=== PATIENT | female | born 1950 | race Caucasian/White ===

== ENCOUNTER 2020-02-23 21:58 | Emergency (ER) | payer MEDICARE, SELFPAY ==
[2020-02-23 22:10] VITALS: BP 175/125; PULSE 84; RESP 16; TEMP 36.6; O2SAT 99; BMI 36.9
--- NOTE | 2020-02-23 22:48 | ED_ITS ---
HPI - General Adult General: Chief complaint: General Medical Stated complaint: high bp Time Seen by Provider: 02/23/20 22:20 History of Present Illness: HPI narrative: 69-year-old female with a history of a arrhythmia . She has had palpitations today, and her blood pressure was high. She felt some tingling in her left arm at one point. Symptoms are improved currently. She denies any shortness of breath chest discomfort, headache, blurry vision, swelling of the feet Onset (ago): hour(s) Radiation: non-radiation Severity: moderate Quality: other Pain Consistency: now resolved Exacerbating factors: none Associated symptoms: Reports no associated symptoms and palpitations; Deny chest pain, dyspnea, headache(s), nausea, rash or vomiting Review of Systems Const: Denies: fever or chills Eyes: Denies: change in vision or blurry vision ENMT: Denies: painful swallowing or facial/sinus pain Card: Reports: palpitations and irregular heart rhythm; Denies: chest pain or edema Resp: Denies: shortness of breath, productive cough, non-productive cough or wheezing GI: Denies: abdominal pain, nausea or vomiting : Denies: painful urination or blood in urine Musc: Denies: neck pain or back pain Skin/Breast: Denies: rash, itching or redness Neuro: Denies: headache, dizziness or vertigo Psych: Reports: anxiety PFSH ED PFSH: Social History Smoking and tobacco status: never smoked Physical Exam Const: GENERAL APPEARANCE: well developed ORIENTATION/CONSCIOUSNESS: Yes oriented to person, Yes oriented to place and Yes oriented to time HENMT: COMMON NORMALS: normocephalic, external ears normal and external nose normal HEAD & SCALP: normocephalic FACE & SINUS: normal facial exam NOSE: external nose normal and no nasal discharge EXTERNAL EAR: Yes external ears normal Eye: COMMON NORMALS: PERRL, EOMs intact bilaterally and conjunctivae normal EYELID: eyelids normal CONJUNCTIVA: Yes conjunctivae normal PUPIL: Yes PERRL Neck/C-Spine: GENERAL: No tracheal deviation Chest: COMMONS NORMALS: inspection of chest normal CHEST: No tenderness Resp: COMMON NORMALS: clear to auscultation bilaterally EFFORT & INSPECTION: No tachypneic, No respiratory distress, No retractions, No uses accessory muscles and No tracheal deviation AUSCULTATION: clear to auscultation bilaterally, no rhonchi, no wheezes and lung sounds not diminished Cardio: COMMON NORMALS: regular rate and regular rhythm RATE: regular rate RHYTHM: regular rhythm HEART SOUNDS: no murmurs PERIPHERAL PULSES: radial pulses present GI: INSPECTION: No abdominal distension AUSCULTATION: No hyperactive bowel sounds and No hypoactive bowel sounds PALPATION: No guarding and No rigid PERCUSSION: no dullness to percussion and no tympanic to percussion Neuro: SENSORIUM/ORIENTATION: Yes oriented to person, Yes oriented to place and Yes oriented to time Psych: COMMON NORMALS: mental status grossly normal Skin: COMMON NORMALS: no rashes or lesions noted GENERAL SKIN EXAM: no rashes or lesions noted Course Vital Signs: Vital signs: Vital Signs Temperature 98 F 02/23/20 22:10 Pulse Rate 93 02/24/20 00:51 Respiratory Rate 18 02/24/20 00:51 Blood Pressure 179/103 02/24/20 00:51 Pulse Oximetry 96 02/24/20 00:51 MDM - General Adult MDM Narrative: Medical decision making narrative: 69-year-old female presents after feeling palpitations, with hypertension. She has had 5 mg of metoprolol IV here. Her heart rate has slowed. She is pretty much asymptomatic now. Blood pressure is still hypertensive at 160/90 her first troponin is essentially negative. Her EKG shows a sinus rhythm with a normal axis and frequent supraventricular premature complexes, which is a chronic condition for her. She takes metoprolol daily, but only 12.5 mg. We will have her increase to 25 mg. I am going to give her a prescription for amlodipine to take if her blood pressure is high and tell her to take her blood pressure twice daily. She knows to follow-up as an outpatient. Lab Data: Labs: Lab Results 02/23/20 02/23/20 02/23/20 Range/Units 22:45 22:45 22:45 WBC 9.3 (4.0-10.0) 10^3/ uL RBC 4.99 (4.1-5.3) 10^6/u L Hgb 14.1 (11.5-15.3) g/dL Hct 43.2 (37.0-47.0) % MCV 86.6 (81-99) fL MCH 28.3 (28.0-34.0) pg MCHC 32.6 (30.0-36.0) g/dL RDW 13.2 (12.1-15.1) % Plt Count 372 (130-400) 10^3/c mm MPV 8.6 (7.4-10.4) fL Neut % (Auto) 56.4 % Lymph % (Auto) 33.6 % [place] % (Auto) 7.4 % Eos % (Auto) 1.8 % Baso % (Auto) 0.5 % Neut # (Auto) 5.3 (1.8-7.7) 10^3/u L Lymph # (Auto) 3.1 (0.8-4.8) 10^3/u L [place] # (Auto) 0.7 (0.2-0.9) 10^3/u L Eos # (Auto) 0.2 (0.0-0.8) 10^3/u L Baso # (Auto) 0.1 (0.0-0.1) 10^3/u L Nucleated RBC % (a uto) 0 % Nucleated RBCs # 0.0 /100WBC Sodium 137 (136-145) mmol/L Potassium 4.3 (3.5-5.1) mmol/L Chloride 100 (98-107) mmol/L Carbon Dioxide 25 (22-29) mmol/L Anion Gap 16.3 (5-19) BUN 16 (8-23) mg/dL Creatinine 0.7 (0.5-0.9) mg/dL GFR Calculation 83.0 L (90-130) mL/min Glucose 127 H (65-115) mg/dL Calculated Osmolal ity 282 L (285-295) mOsm/k g Calcium 10.3 (8.5-10.5) mg/dL Total Bilirubin 0.4 (0.15-1.2) mg/dL AST 39 H (0-32) U/L ALT 63 H (0-33) U/L Alkaline Phosphata se 97 (35-105) IU/L Troponin T Baselin e 12 H (0-10) ng/mL Total Protein 7.3 (6.6-8.7) g/dL Albumin 4.6 (3.5-5.2) g/dL Globulin 2.7 (1.3-4.6) g/dL Discharge Plan Discharge Patient Disposition: Home, Self-Care Clinical Impression: Heart palpitations Hypertension Qualifiers: Hypertension type: essential hypertension Qualified Code(s): I10 - Essential (primary) hypertension Condition: Stable Prescriptions: New amlodipine 10 mg tablet 10 mg PO DAILY Qty: 30 RF: 0 Discharge Orders: Discharge Order (Routine); Ordered 02/24/20 Ordered By: Amado Carrillo Referrals: MARTHA ESPINAL DO [Family Provider] - 4-7 days Tom Goyal DO [Primary Care Provider] - Discharge Diet: Usual diet Discharge Activity: Increase activity as tolerated Patient Instructions: Palpitations (ED), Hypertension (ED) Activity Restrictions/Additional Instructions: Consider increasing your metoprolol from 12.5 mg daily to 25 mg daily. It may reduce your symptoms of palpitations. Check your blood pressure twice daily for the next several days. If the systolic or top number is remaining above 150, you may take one of the amlodipine you were given a prescription for. Return to the emergency department for worsening palpitations, chest discomfort, shortness of breath, other concerning symptoms. Discharge Date/Time: 02/24/20 00:58 Coding Level of Care Code ED Textiles Sales Representative for Yris Fwd Exam Comprehensive
--- NOTE | 2020-02-23 22:48 | ECG_ITS ---
Measurements Intervals [place] Rate: 93 P: 50 IN: 178 QRS: 41 QRSD: 89 T: 47 QT: 345 QTc: 429 SINUS RHYTHM WITH FREQUENT SUPRAVENTRICULAR PREMATURE COMPLEXES ABNORMAL RHYTHM ECG Compared to ECG 10/24/2016 13:28:58 No significant changes Electronically Signed On 02-24-2020 18:15:42 CDT by Tanisha Montana M.D. [id number] f
[2020-02-23 22:53] VITALS: BP 194/96; PULSE 88; RESP 18; O2SAT 98
[2020-02-23 22:56] LABS: Basophils # 0.1 10^3/uL (0.0-0.1); Basophils % 0.5 %; Eosinophils # 0.2 10^3/uL (0.0-0.8); Eosinophils % 1.8 %; Hematocrit 43.2 % (37.0-47.0); Hemoglobin 14.1 g/dL (11.5-15.3); Lymphocytes # 3.1 10^3/uL (0.8-4.8); Lymphocytes % 33.6 %; Mean Corpuscular HGB Conc 32.6 g/dL (30.0-36.0); Mean Corpuscular Hemoglobin 28.3 pg (28.0-34.0); Mean Corpuscular Volume 86.6 fL (81-99); Mean Platelet Volume 8.6 fL (7.4-10.4); Monocytes # 0.7 10^3/uL (0.2-0.9); Monocytes % 7.4 %; Neutrophils # 5.3 10^3/uL (1.8-7.7); Neutrophils % 56.4 %; Nucleated Red Blood Cells % 0 %; Platelet Count 372 10^3/cmm (130-400); Red Blood Count 4.99 10^6/uL (4.1-5.3); Red Cell Distribution Width 13.2 % (12.1-15.1); White Blood Count 9.3 10^3/uL (4.0-10.0)
[2020-02-23 23:01] VITALS: BP 178/80; PULSE 83; RESP 13; O2SAT 97
[2020-02-23] MEDS: LORazepam 2 mg/mL INJ 1 mL 0.5 MG IVP (23:08)
[2020-02-23] MEDS: metoprolol tartrate 1 mg/1 mL SDV 5 mL 5 MG IV (23:09)
[2020-02-23 23:10] LABS: Alanine Aminotransferase 63 U/L (0-33); Albumin Level 4.6 g/dL (3.5-5.2); Alkaline Phosphatase 97 IU/L (35-105); Anion Gap 16.3 (5-19); Aspartate Amino Transferase 39 U/L (0-32); Blood Urea Nitrogen 16 mg/dL (8-23); Calcium 10.3 mg/dL (8.5-10.5); Carbon Dioxide 25 mmol/L (22-29); Chloride 100 mmol/L (98-107); Globulin 2.7 g/dL (1.3-4.6); Glucose 127 mg/dL (65-115); Osmolality Calculated 282 mOsm/kg (285-295); Potassium 4.3 mmol/L (3.5-5.1); Sodium 137 mmol/L (136-145); Total Bilirubin 0.4 mg/dL (0.15-1.2); Total Protein 7.3 g/dL (6.6-8.7)
[2020-02-23 23:11] LABS: Troponin(5th) Baseline 12 ng/mL (0-10)
[2020-02-23 23:30] VITALS: BP 171/86; PULSE 81; RESP 16; O2SAT 99
[2020-02-24] VITALS: BP 161/91; PULSE 79; RESP 17; O2SAT 97
[2020-02-24] MEDS: amlodipine 10 mg Tablet PO (00:35)
[2020-02-24 00:51] VITALS: BP 179/103; PULSE 93; RESP 18; O2SAT 96
== END 2020-02-24 00:58 | disposition home or self-care (01) ==
PROVIDERS: Emergency Provider Emergency Medicine; Family Provider Internal Medicine; PCP Family Medicine
DX: I10 Essential (primary) hypertension (principal); R00.2 Palpitations
CPT/HCPCS: 12345; 80053; 84484; 85025; 93005; 96374; 96375; 99282; 99283; J2060; J3490

== ENCOUNTER 2020-02-24 13:09 | Emergency (ER) | payer MEDICARE, SELFPAY ==
[2020-02-24 13:14] VITALS: BP 173/80; PULSE 100; RESP 18; TEMP 36.6; O2SAT 98; BMI 36.9
--- NOTE | 2020-02-24 13:21 | ECG_ITS ---
"Measurements Intervals [place] Rate: 84 P: 50 MD: 171 QRS: 38 QRSD: 86 T: 46 QT: 347 QTc: 411 SINUS RHYTHM Compared to ECG 10/24/2016 13:28:58 No significant changes Electronically Signed On 02-24-2020 18:24:24 CDT by Tanisha Montana M.D. [id number] f"
--- NOTE | 2020-02-24 13:26 | W.ED.GENADLT ---
HPI - General Adult General: Chief complaint: General Medical Stated complaint: low bp Time Seen by Provider: 02/24/20 13:18 History of Present Illness: HPI narrative: 69-year-old female comes in complaining of hypertension. She was seen yesterday with elevated blood pressures and given new medications take she had not taken them yet this morning and checked her blood pressure was 77 systolic she did not feel very well at this time, lightheaded and dizzy otherwise nothing specific no chest pain. 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 When she arrives here she is feeling better her blood pressure has improved. She was discharged home yesterday with amlodipine 10 mg daily and also was advised to take her metoprolol 12.5 twice daily. She takes that for PACs. Onset (ago): day(s) Location: head (Lightheaded and dizzy) Severity: moderate Relieving factors: rest Associated symptoms: Deny chest pain, dyspnea, malaise, nausea, rash or vomiting Treatments prior to arrival: none Review of Systems Const: Denies: fever, chills, body aches, change in appetite, fatigue or malaise ENMT: Denies: throat pain, ear pain, nasal discharge or nasal congestion Card: Denies: chest pain, edema, shortness of breath on exertion or shortness of breath when lying down Resp: Denies: shortness of breath, productive cough or non-productive cough GI: Denies: abdominal pain, nausea, vomiting, vomiting blood, coffee grounds in vomit, diarrhea, constipation, bloating, blood in stool or black tarry stool : Denies: flank pain, difficulty urinating, painful urination, urinary frequency or urinary urgency Skin/Breast: Denies: rash or itching Neuro: Reports: dizziness [facility] PFSH: Medical History (Updated 02/24/20 @ 15:34 by Wilson Butler DO) Heart palpitations Hypertension Impaired glucose tolerance Surgical History (Updated 02/24/20 @ 14:15 by Wilson Butler DO) H/O hysterectomy for benign disease History of appendectomy History of cholecystectomy Social History Smoking and tobacco status: never smoked Physical Exam Const: COMMON NORMALS: no apparent distress GENERAL APPEARANCE: cooperative and comfortable ORIENTATION/CONSCIOUSNESS: Yes awake, Yes oriented to person, Yes oriented to place and Yes oriented to time HENMT: COMMON NORMALS: normocephalic, head/scalp atraumatic, hearing grossly normal bilaterally, external ears normal, EAC's normal, TM's normal bilaterally, nasal mucous membranes and turbinates normal, moist oral mucous membranes and oropharynx normal HEAD & SCALP: normocephalic and atraumatic NOSE: nasal mucous membranes and turbinates normal EXTERNAL EAR: Yes external ears normal EXTERNAL AUDITORY CANAL: EAC's normal TYMPANIC MEMBRANE: TM's normal bilaterally Eye: COMMON NORMALS: PERRL, EOMs intact bilaterally, conjunctivae normal and no scleral icterus CONJUNCTIVA: Yes conjunctivae normal PUPIL: Yes PERRL Neck/C-Spine: COMMON NORMALS: full ROM, no lymphadenopathy, supple and no JVD Lymph: LYMPHATIC: no lymphadenopathy noted and no lymphedema noted Resp: COMMON NORMALS: normal respiratory effort, no retractions, no use of accessory muscles and clear to auscultation bilaterally AUSCULTATION: clear to auscultation bilaterally Cardio: COMMON NORMALS: no JVD, regular rate, regular rhythm and no murmurs RATE: regular rate RHYTHM: regular rhythm GI: COMMON NORMALS: soft to palpation and no hepatosplenomegaly AUSCULTATION: Yes normoactive bowel sounds PALPATION: Yes soft, No tender, No guarding and Yes no hepatosplenomegaly Extremity: COMMON NORMALS: normal to inspection, normal capillary refill, no clubbing, cyanosis or edema, no calf tenderness and no pedal edema Neuro: SENSORIUM/ORIENTATION: Yes oriented to person, Yes oriented to place and Yes oriented to time Skin: COMMON NORMALS: no rashes or lesions noted GENERAL SKIN EXAM: no rashes or lesions noted Course Vital Signs: Vital signs: Vital Signs Temperature 97.8 F 02/24/20 13:14 Pulse Rate 75 02/24/20 15:41 Respiratory Rate 17 02/24/20 15:41 Blood Pressure 165/81 02/24/20 15:41 Pulse Oximetry 99 02/24/20 15:41 MDM - General Adult MDM Narrative: Medical decision making narrative: Hold amlodipine continue all other medications follow-up with primary care in the next 3 to 4 days to reevaluate blood pressure if has significant worsening or change symptoms recheck. Lab Data: Labs: Lab Results 05/04/20 05/04/20 05/04/20 Range/Units 13:47 13:47 14:46 WBC 9.5 (4.0-10.0) 10^3/ uL RBC 4.48 (4.1-5.3) 10^6/u L Hgb 12.4 (11.5-15.3) g/dL Hct 39.5 (37.0-47.0) % MCV 88.2 (81-99) fL MCH 27.7 L (28.0-34.0) pg MCHC 31.4 (30.0-36.0) g/dL RDW 13.3 (12.1-15.1) % Plt Count 316 (130-400) 10^3/c mm MPV 8.6 (7.4-10.4) fL Neut % (Auto) 68.1 % Lymph % (Auto) 22.9 % [place] % (Auto) 7.0 % Eos % (Auto) 1.0 % Baso % (Auto) 0.8 % Neut # (Auto) 6.5 (1.8-7.7) 10^3/u L Lymph # (Auto) 2.2 (0.8-4.8) 10^3/u L [place] # (Auto) 0.7 (0.2-0.9) 10^3/u L Eos # (Auto) 0.1 (0.0-0.8) 10^3/u L Baso # (Auto) 0.1 (0.0-0.1) 10^3/u L Nucleated RBC % (a uto) 0 % Nucleated RBCs # 0.0 /100WBC Sodium 137 (136-145) mmol/L Potassium 4.0 (3.5-5.1) mmol/L Chloride 101 (98-107) mmol/L Carbon Dioxide 21 L (22-29) mmol/L Anion Gap 19.0 (5-19) BUN 15 (8-23) mg/dL Creatinine 0.8 (0.5-0.9) mg/dL GFR Calculation 71.1 L (90-130) mL/min Glucose 167 H (65-115) mg/dL Calculated Osmolal ity 284 L (285-295) mOsm/k g Calcium 9.5 (8.5-10.5) mg/dL Total Bilirubin 0.5 (0.15-1.2) mg/dL AST 42 H (0-32) U/L ALT 59 H (0-33) U/L Alkaline Phosphata se 79 (35-105) IU/L Total Protein 6.9 (6.6-8.7) g/dL Albumin 3.8 (3.5-5.2) g/dL Globulin 3.1 (1.3-4.6) g/dL Urine Color Yellow (Yellow) Urine Appearance Clear (CLEAR) Urine pH 5 (5-7) Ur Specific Gravit y 1.030 (1.005-1.030) Urine Protein Neg (Negative) Urine Glucose (UA) Norm (Normal) Urine Ketones Negative (Negative) Urine Blood Neg (Negative) Urine Nitrate Negative (Negative) Urine Bilirubin 1+ H (NEGATIVE) Urine Urobilinogen Norm (Negative) mg/dL Ur Leukocyte Carolyne ase Trace H (Negative) Urine RBC None (0-2) /hpf Urine WBC 5-10 H (0-5) /hpf Ur Squamous Epith Cells 0-4 H (0-5) Urine Bacteria 1+ H (NONE) Discharge Plan Discharge Patient Disposition: Home, Self-Care Clinical Impression: Hypertension Condition: Stable Prescriptions: Discontinued amlodipine 10 mg tablet 10 mg PO DAILY Qty: 30 RF: 0 No Action Amla Fruit 1 tab PO DAILY RF: 0 Ashwagandha Oral 1 tab PO DAILY RF: 0 vitamin A 8,000 unit Capsule 8,000 unit PO DAILY RF: 0 milk thistle 500 mg Capsule 500 mg PO DAILY RF: 0 Glucosamine 500 mg Tablet 500 mg PO DAILY RF: 0 metformin 1,000 mg Tablet 1,000 mg PO BID RF: 0 losartan 25 mg Tablet 25 mg PO BID RF: 0 vitamin B complex Tablet 1 tab PO DAILY RF: 0 Vitamin D3 25 mcg (1,000 unit) Capsule 25 mcg PO DAILY RF: 0 Fish Oil 1,000 mg (120 mg-180 mg) Capsule 1 cap PO DAILY RF: 0 coconut oil 1,000 mg Capsule 1,000 mg PO DAILY RF: 0 turmeric 400 mg Capsule 400 mg PO DAILY RF: 0 Discharge Orders: Discharge Order (Routine); Ordered 02/24/20 Ordered By: Wilson Butler Referrals: MARTHA ESPINAL DO [Family Provider] - Tom Goyal DO [Primary Care Provider] - Discharge Diet: Usual diet Discharge Activity: Resume usual activity Activity Restrictions/Additional Instructions: Follow-up with your doctor in the next 1 to 2 days. If you have blood pressure greater than 200 return to the emergency room immediately. Discharge Date/Time: 02/24/20 15:42 Coding Level of Care Code ED Picker Feeder for Yris Fwangeli Exam Comprehensive
[2020-02-24 13:54] LABS: Basophils # 0.1 10^3/uL (0.0-0.1); Basophils % 0.8 %; Eosinophils # 0.1 10^3/uL (0.0-0.8); Hematocrit 39.5 % (37.0-47.0); Hemoglobin 12.4 g/dL (11.5-15.3); Lymphocytes # 2.2 10^3/uL (0.8-4.8); Lymphocytes % 22.9 %; Mean Corpuscular HGB Conc 31.4 g/dL (30.0-36.0); Mean Corpuscular Hemoglobin 27.7 pg (28.0-34.0); Mean Corpuscular Volume 88.2 fL (81-99); Mean Platelet Volume 8.6 fL (7.4-10.4); Monocytes # 0.7 10^3/uL (0.2-0.9); Neutrophils # 6.5 10^3/uL (1.8-7.7); Neutrophils % 68.1 %; Nucleated Red Blood Cells % 0 %; Platelet Count 316 10^3/cmm (130-400); Red Blood Count 4.48 10^6/uL (4.1-5.3); Red Cell Distribution Width 13.3 % (12.1-15.1); White Blood Count 9.5 10^3/uL (4.0-10.0)
[2020-02-24 14:12] VITALS: BP 119/79; BP 126/73; BP 150/75; PULSE 100; PULSE 87; PULSE 92
[2020-02-24 14:32] LABS: Alanine Aminotransferase 59 U/L (0-33); Albumin Level 3.8 g/dL (3.5-5.2); Alkaline Phosphatase 79 IU/L (35-105); Blood Urea Nitrogen 15 mg/dL (8-23); Calcium 9.5 mg/dL (8.5-10.5); Carbon Dioxide 21 mmol/L (22-29); Chloride 101 mmol/L (98-107); Globulin 3.1 g/dL (1.3-4.6); Glomerular Filtration Rate 71.1 mL/min (90-130); Glucose 167 mg/dL (65-115); Osmolality Calculated 284 mOsm/kg (285-295); Sodium 137 mmol/L (136-145); Total Bilirubin 0.5 mg/dL (0.15-1.2); Total Protein 6.9 g/dL (6.6-8.7)
[2020-02-24 14:57] LABS: Aspartate Amino Transferase 42 U/L (0-32)
[2020-02-24 15:04] VITALS: BP 145/77; PULSE 85; RESP 16; O2SAT 98
[2020-02-24 15:41] VITALS: BP 165/81; PULSE 75; RESP 17; O2SAT 99
[2020-02-24 15:47] LABS: Add Urine Microscopic? YES; Bilirubin Urine 1+ (NEGATIVE); Blood Urine Neg (Negative); Glucose Urine UA Norm (Normal); Ketones Urine Negative (Negative); Leukocyte Esterase Urine Trace (Negative); Nitrate Urine Negative (Negative); Protein Urine Neg (Negative); Urine Appearance Clear (CLEAR); Urine Color Yellow (Yellow); Urobilinogen Urine Norm (Negative); pH Urine 5 (5-7)
[2020-02-24 15:48] LABS: Add Urine Culture? Yes; Bacteria Urine 1+; Squamous Epithelial Cell Urine 0-4 (0-5)
== END 2020-02-24 15:42 | disposition home or self-care (01) ==
PROVIDERS: Emergency Provider Family Medicine; Family Provider Internal Medicine; PCP Family Medicine
DX: I10 Essential (primary) hypertension (principal); R00.2 Palpitations; Z79.899 Other long term (current) drug therapy
CPT/HCPCS: 12345; 80053; 81001; 85025; 87086; 93005; 99283

== ENCOUNTER 2022-10-06 18:36 | Emergency (ER) | payer MEDICARE, SELFPAY ==
--- NOTE | 2022-10-06 18:38 | XRR_ITS ---
PROCEDURE INFORMATION: Exam: XR Chest Exam date and time: 10/06/2022 7:05 PM Age: 72 years old Clinical indication: Angina; Additional info: Cp TECHNIQUE: Imaging protocol: Radiologic exam of the chest. Views: 1 view. COMPARISON: CR XR chest 1V [id number] 10/24/2016 1:46 PM FINDINGS: Lungs: Unremarkable. No consolidation. Pleural spaces: Unremarkable. No pleural effusion. No pneumothorax. Heart/Mediastinum: Unremarkable. No cardiomegaly. Bones/joints: Unremarkable. XR/XR chest 1V portable [id number] IMPRESSION: No acute findings.
[2022-10-06 18:42] VITALS: BP 178/88; PULSE 121; RESP 20; TEMP 36.4; O2SAT 95
--- NOTE | 2022-10-06 19:05 | ECG_ITS ---
[facility] Test Date: 2022-10-06 Pat Name: Chiqui Nuñez Department: Room: Gender: Female Social Science Professor: : 1950 Requested By: Gaetano Burks Order Number: [id number] Yoselyn MD: Fritz Bliss M.D. Measurements Intervals [place] Rate: 108 P: 46 [place]: 140 QRS: 34 QRSD: 83 T: 36 QT: 322 QTc: 432 Interpretive Statements SINUS TACHYCARDIA Compared to ECG 02/24/2020 13:45:15 Sinus rhythm no longer present Electronically Signed On 10-07-2022 13:47:35 CONCRETE CRAFTSMAN by Fritz Bliss M.D. [id number]
--- NOTE | 2022-10-06 19:11 | W.ED.ARRPALP ---
HPI - Arrhythmia/Palpitations General: Chief Complaint: Arrhythmia/Palpitations Stated Complaint: Chest Pains Time Seen by Provider: 10/06/22 18:49 Source: patient Mode of arrival: ambulatory Limitations: no limitations History of Present Illness: 72-year-old female has a long history of anxiety states today started having some palpitations and did feel anxious states that her heart rate got up into the 120s she denies any chest pain or shortness of breath states she is feeling improved but she is still tachycardic heart rate now is 105 she denies any worsening improving factors denies any vomiting or diarrhea. Associated symptoms: Deny nausea or vomiting Review of Systems Const: Denies: fever(s), chills, body aches or change in appetite Eyes: Denies: blurry vision or eye discomfort ENMT: Denies: throat pain or dental pain Card: Reports: palpitations Resp: Denies: dyspnea GI: Denies: abdominal pain, nausea, vomiting or diarrhea : Denies: dysuria Musc: Denies: neck pain or back pain Skin/Breast: Denies: rash Neuro: Denies: headache(s) Psych: Denies: depression [place]/Lymph: Denies: easy bruising All/Imm: Denies: urticaria PFSH ED PFSH: Medical History Heart palpitations Hypertension Impaired glucose tolerance Surgical History H/O hysterectomy for benign disease History of appendectomy History of cholecystectomy Family History Mother Diabetes Hypertension Grandmother CAD (coronary artery disease) Social History Smoking and tobacco status: never smoked Physical Exam Const: COMMON NORMALS: no acute distress, patient oriented x3 and healthy appearing HENMT: COMMON NORMALS: normocephalic and atraumatic HEAD & SCALP: normocephalic and atraumatic Eye: COMMON NORMALS: Equal, round and reactive pupils present and EOMs intact bilaterally PUPIL: Yes Equal, round and reactive pupils present Neck/C-Spine: COMMON NORMALS: full ROM and supple Chest: COMMONS NORMALS: normal inspection of the chest and normal palpation of entire chest wall Resp: COMMON NORMALS: normal respiratory effort, No retractions, No use of accessory muscles and clear to auscultation bilaterally AUSCULTATION: clear to auscultation bilaterally Cardio: COMMON NORMALS: regular rhythm and No murmurs present (Cardio) RATE: tachycardic RHYTHM: regular rhythm GI: COMMON NORMALS: Normal to inspection, nondistended, normoactive bowel sounds present, Soft to palpation, non-tender and no masses PALPATION: Yes Soft to palpation Extremity: COMMON NORMALS: normal to inspection and full ROM Neuro: COMMON NORMALS: patient oriented x3, moves all extremities and no focal motor deficits Psych: COMMON NORMALS: mental status grossly normal, Normal thought process present and cooperative THOUGHT PROCESS: Normal thought process present Skin: COMMON NORMALS: no rashes or lesions noted and no wounds GENERAL SKIN EXAM: no rashes or lesions noted Course Vital Signs: Vital signs: Vital Signs Temperature 97.6 F 10/06/22 18:42 Pulse Rate 108 H 10/06/22 19:28 Respiratory Rate 18 10/06/22 19:28 Blood Pressure 156/86 10/06/22 19:28 Pulse Oximetry 97 10/06/22 19:28 Oxygen Delivery Me thod 10/06/22 19:28 MDM - Arrhythmia/Palpitations Medical Decision Making Patient presents here with palpitations likely from anxiety her heart rate here is improved blood works normal troponins normal no signs of acute coronary syndrome we will get her cardiology follow-up she is to return if worsening she understands agrees to plan. Lab Data 10/06/22 19:20 10/06/22 19:20 Radiology Impressions Chest X-Ray 10/06/22 18:38 IMPRESSION: No acute findings. Laboratory Results WBC 10.2 10^3/uL (4.0-10.0) H 10/06/22 19:20 RBC 4.68 10^6/uL (4.1-5.3) 10/06/22 19:20 Hgb 13.4 g/dL (11.5-15.3) 10/06/22 19:20 Hct 40.8 % (37.0-47.0) 10/06/22 19:20 MCV 87.2 fl (81-99) 10/06/22 19:20 MCH 28.6 pg (28.0-34.0) 10/06/22 19:20 MCHC 32.8 g/dL (30.0-36.0) 10/06/22 19:20 RDW 13.2 % (12.1-15.1) 10/06/22 19:20 Plt Count 339 10^3/cmm (130-400) 10/06/22 19:20 MPV 8.4 fL (7.4-10.4) 10/06/22 19:20 Neut % (Auto) 69.2 % 10/06/22 19:20 Lymph % (Auto) 22.7 % 10/06/22 19:20 Major % (Auto) 5.6 % 10/06/22 19:20 Eos % (Auto) 1.6 % 10/06/22 19:20 Baso % (Auto) 0.7 % 10/06/22 19:20 Neut # (Auto) 7.08 10^3/uL (1.8-7.7) 10/06/22 19:20 Lymph # (Auto) 2.3 10^3/uL (0.8-4.8) 10/06/22 19:20 Major # (Auto) 0.6 10^3/uL (0.2-0.9) 10/06/22 19:20 Eos # (Auto) 0.2 10^3/uL (0.0-0.8) 10/06/22 19:20 Baso # (Auto) 0.1 10^3/uL (0.0-0.1) 10/06/22 19:20 Nucleated RBC % (auto) 0 % 10/06/22 19:20 Nucleated RBCs # 0.0 /100WBC 10/06/22 19:20 Sodium 138 mmol/L (136-145) 10/06/22 19:20 Potassium 3.9 mmol/L (3.5-5.1) 10/06/22 19:20 Chloride 103 mmol/L (98-107) 10/06/22 19:20 Carbon Dioxide 21 mmol/L (22-29) L 10/06/22 19:20 Anion Gap 17.9 (5-19) 10/06/22 19:20 BUN 13 mg/dL (8-23) 10/06/22 19:20 Creatinine 0.6 mg/dL (0.5-0.9) 10/06/22 19:20 GFR Calculation Not Reportable 10/06/22 19:20 Glucose 144 mg/dL (65-115) H 10/06/22 19:20 Calculated Osmolality 289 mOsm/kg (285-295) 10/06/22 19:20 Calcium 9.6 mg/dL (8.5-10.5) 10/06/22 19:20 Total Bilirubin 0.3 mg/dL (0.15-1.2) 10/06/22 19:20 AST 29 U/L (0-32) 10/06/22 19:20 ALT 33 U/L (0-33) 10/06/22 19:20 Alkaline Phosphatase 104 U/L (35-105) 10/06/22 19:20 Troponin T Baseline 9 ng/L (0-10) 10/06/22 19:20 Total Protein 7.0 g/dL (6.6-8.7) 10/06/22 19:20 Albumin 3.7 g/dL (3.5-5.2) 10/06/22 19:20 Globulin 3.3 g/dL (1.3-4.6) 10/06/22 19:20 EKG Data EKG 1: I personally reviewed and interpreted this EKG as follows: EKG interpretation date: 10/06/22 EKG interpretation time: 19:05 Interpretation: sinus tach hr [address] or t wave abnormalities qrs 83 qtc 385 Other EKG comments: Chest X-Ray 10/06/22 18:38 IMPRESSION: No acute findings. Discharge Plan Discharge Patient Disposition: Home Clinical Impression: Palpitations Condition: Stable Prescriptions: No Action melatonin 10 mg capsule 10 mg PO DAILY magnesium oxide 400 mg magnesium capsule 400 mg PO DAILY Ocuvite Adult 50 Plus 250-5-1 mg capsule 1 cap PO DAILY selenium 200 mcg capsule 200 mcg PO DAILY venlafaxine [Effexor XR] 75 mg capsule,extended release 24hr 75 mg PO DAILY metoprolol succinate 25 mg tablet extended release 24 hr 12.5 mg PO BID Qty: 90 3RF Amla Fruit 1 tab PO DAILY Ashwagandha Oral 1 tab PO DAILY vitamin A 8,000 unit Capsule 8,000 unit PO DAILY milk thistle 500 mg Capsule 500 mg PO DAILY Glucosamine 500 mg Tablet 500 mg PO DAILY metformin 1,000 mg Tablet 1,000 mg PO BID vitamin B complex Tablet 1 tab PO DAILY Vitamin D3 25 mcg (1,000 unit) Capsule 25 mcg PO DAILY Fish Oil 1,000 mg (120 mg-180 mg) Capsule 1 cap PO DAILY coconut oil 1,000 mg Capsule 1,000 mg PO DAILY turmeric 400 mg Capsule 400 mg PO DAILY losartan 25 mg tablet 25 mg PO DAILY Discharge Orders: Discharge ED (Routine); Ordered 10/06/22 Ordered By: Gaetano Burks Referrals: Kary Plasencia DO [Primary Care Provider] - Discharge Diet: Advance as tolerated Discharge Activity: Resume usual activity Patient Instructions: Heart Palpitations (ED) Coding Level of Care Code ED Public Health Veterinarian for Melaniag Fwd Exam Comprehensive
[2022-10-06] MEDS: metoprolol tartrate 50 mg Tablet PO (19:26)
[2022-10-06] MEDS: LORazepam 1 mg Tablet PO (19:26)
[2022-10-06 19:27] LABS: Basophils # 0.1 10^3/uL (0.0-0.1); Basophils % 0.7 %; Eosinophils # 0.2 10^3/uL (0.0-0.8); Eosinophils % 1.6 %; Hematocrit 40.8 % (37.0-47.0); Hemoglobin 13.4 g/dL (11.5-15.3); Lymphocytes # 2.3 10^3/uL (0.8-4.8); Lymphocytes % 22.7 %; Mean Corpuscular HGB Conc 32.8 g/dL (30.0-36.0); Mean Corpuscular Hemoglobin 28.6 pg (28.0-34.0); Mean Corpuscular Volume 87.2 fl (81-99); Mean Platelet Volume 8.4 fL (7.4-10.4); Monocytes # 0.6 10^3/uL (0.2-0.9); Monocytes % 5.6 %; Neutrophils # 7.08 10^3/uL (1.8-7.7); Neutrophils % 69.2 %; Nucleated Red Blood Cells % 0 %; Platelet Count 339 10^3/cmm (130-400); Red Blood Count 4.68 10^6/uL (4.1-5.3); Red Cell Distribution Width 13.2 % (12.1-15.1); White Blood Count 10.2 10^3/uL (4.0-10.0)
[2022-10-06 19:28] VITALS: BP 156/86; PULSE 108; RESP 18; O2SAT 97
[2022-10-06 19:59] LABS: Alanine Aminotransferase 33 U/L (0-33); Albumin Level 3.7 g/dL (3.5-5.2); Alkaline Phosphatase 104 U/L (35-105); Anion Gap 17.9 (5-19); Aspartate Amino Transferase 29 U/L (0-32); Blood Urea Nitrogen 13 mg/dL (8-23); Calcium 9.6 mg/dL (8.5-10.5); Carbon Dioxide 21 mmol/L (22-29); Chloride 103 mmol/L (98-107); Creatinine Clr Calc Pharmacy 81.3306; Globulin 3.3 g/dL (1.3-4.6); Glucose 144 mg/dL (65-115); Osmolality Calculated 289 mOsm/kg (285-295); Potassium 3.9 mmol/L (3.5-5.1); Sodium 138 mmol/L (136-145); Total Bilirubin 0.3 mg/dL (0.15-1.2)
[2022-10-06 20:03] LABS: Troponin(5th) Baseline 9 ng/L (0-10)
[2022-10-06 20:23] VITALS: BP 154/89; PULSE 100; RESP 18; O2SAT 97
--- NOTE | 2022-10-07 09:36 | DCPLANNER ---
Addendum entered by Becca Last 10/21/22 13:50: Patient had a follow up appointment scheduled with heart [facility] - patient did attend appointment. Addendum entered by Becca Last 10/11/22 13:20: Patient has a follow up appointment scheduled for Monday, October 12, 2022 at 3:00 at [facility]. Clinic will call patient with appointment information. Original Note: fuel manager had message to schedule a follow up appointment for patient with cardiology. fuel manager sent patients information to the front office staff at [facility]. Patients information will be printed and reviewed. Clinic will call patient with appointment information.
== END 2022-10-06 20:31 | disposition home or self-care (01) ==
PROVIDERS: Emergency Provider Emergency Medicine; PCP Internal Medicine
DX: R00.2 Palpitations (principal); Z79.84 Long term (current) use of oral hypoglycemic drugs; I10 Essential (primary) hypertension
CPT/HCPCS: 71045; 80053; 84484; 85025; 93005; 99285

== ENCOUNTER → 2022-10-12 14:38 | Outpatient (BNVA) | payer MEDICARE, SELFPAY | PROVIDERS: PCP Family Medicine; Visit Provider Internal Medicine Cardiovascular Disease | DX: R00.2 Palpitations (principal); I10 Essential (primary) hypertension; I49.1 Atrial premature depolarization | CPT/HCPCS: 99213 ==

== ENCOUNTER 2025-02-08 12:43 | Emergency (ER) | payer MEDICARE, SELFPAY ==
--- NOTE | 2025-02-08 12:52 | W.ED.ABDPA2 ---
HPI - Abdominal Pain General: Chief Complaint: Abdominal Pain Stated Complaint: lower abdominal pain Time Seen by Provider: 02/08/25 12:48 History of Present Illness: 74-year-old female presents to the emergency room complaining of lower abdominal pain she woke up with this morning she states she felt gassy she tried to void and defecate passed gas she says she was able to do all the above but did not really improve her symptoms at all. She not had any fever sweats or chills. She denies any chest pain or shortness of breath. No dysuria urgency or frequency no hematuria. No history of any kidney stones. For a while she noticed a little bit more discomfort in the right lower back. She previously has had a hysterectomy cholecystectomy and appendectomy Associated Symptoms: Reports nausea; Denies chills, coffee ground emesis, constipation, diarrhea, dysuria, fever(s), hematochezia, hematemesis, melena and vomiting Related Data Home Medications ?Medication ?Instructions ?Recorded ?Confirmed coconut oil 1,000 mg capsule 1,000 mg PO DAILY 02/24/20 02/08/25 glucosamine sulfate 500 mg tablet 500 mg PO DAILY 02/24/20 02/08/25 (Glucosamine) metformin 1,000 mg tablet 1,000 mg PO BID 02/24/20 02/08/25 milk thistle 500 mg capsule 500 mg PO DAILY 02/24/20 02/08/25 omega 4-iqg-arn-fish oil 1,000 mg 1 cap PO DAILY 02/24/20 02/08/25 (120 mg-180 mg) capsule (Fish Oil) turmeric 400 mg capsule 400 mg PO DAILY 02/24/20 02/08/25 vitamin B complex 1 tab PO DAILY 02/24/20 02/08/25 losartan 25 mg tablet 25 mg PO DAILY 03/10/20 02/08/25 magnesium oxide 400 mg PO DAILY 03/10/20 02/08/25 selenium 200 mcg capsule 200 mcg PO DAILY 03/10/20 02/08/25 cholecalciferol (vitamin D3) 25 100 mcg PO DAILY 10/12/22 02/08/25 mcg (1,000 unit) capsule (Vitamin D3) cinnamon bark 500 mg capsule 1,500 mg PO DAILY 10/12/22 02/08/25 venlafaxine 75 mg capsule,extended 150 mg PO DAILY 10/12/22 02/08/25 release 24 hr (Effexor XR) vitamin E mixed 400 unit capsule 400 unit PO DAILY 10/12/22 02/08/25 josephdha extract 120 mg capsule 120 mg PO DAILY 02/08/25 02/08/25 [id number] 250 mg-dha 90 1 cap PO DAILY 02/08/25 02/08/25 mg-epa 160 [id number]-zeax capsule (Ocuvite Adult 50 Plus) Previous Rx's ?Medication ?Instructions ?Recorded metoprolol tartrate 25 mg tablet 25 mg PO BID #180 tabs 02/27/23 hydrocodone 5 mg-acetaminophen 325 1 tab PO Q6H PRN pain #20 tabs 02/08/25 mg tablet promethazine 25 mg tablet 25 mg PO Q6H PRN nausea and 02/08/25 vomiting #20 tabs tamsulosin 0.4 mg capsule 0.4 mg PO DAILY #20 caps 02/08/25 Allergies Allergy/AdvReac Type Severity Reaction Status Date / Time No Known Allergies Allergy Verified 02/23/20 22:26 Review of Systems Const: Denies: fever(s) or chills Card: Denies: chest pain Resp: Denies: dyspnea GI: Reports: abdominal pain and nausea; Denies: vomiting, hematemesis, coffee ground emesis, diarrhea, constipation, hematochezia or melena : Denies: dysuria, urinary frequency or urinary urgency Musc: Denies: neck pain or back pain Skin/Breast: Denies: rash PFSH ED PFSH: Medical History Anxiety Impaired glucose tolerance Hypertension Heart palpitations Surgical History H/O hysterectomy for benign disease History of cholecystectomy History of appendectomy Family History Mother Diabetes Hypertension Grandmother CAD (coronary artery disease) Social History Smoking and tobacco/nicotine status: never used tobacco/nicotine Physical Exam Const: GENERAL APPEARANCE: cooperative ORIENTATION/CONSCIOUSNESS: Yes awake, Yes oriented to person, Yes oriented to place and Yes oriented to time HENMT: COMMON NORMALS: normocephalic, atraumatic and hearing grossly normal bilaterally HEAD & SCALP: normocephalic and atraumatic Resp: COMMON NORMALS: normal respiratory effort, No retractions, No use of accessory muscles and clear to auscultation bilaterally AUSCULTATION: clear to auscultation bilaterally Cardio: COMMON NORMALS: regular rate, regular rhythm and No murmurs present (Cardio) RATE: regular rate RHYTHM: regular rhythm GI: COMMON NORMALS: Soft to palpation and No hepatosplenomegaly present AUSCULTATION: Yes normoactive bowel sounds PALPATION: Yes Soft to palpation, No Tenderness to palpation present (GI), No Guarding due to palpation present (GI) and Yes No hepatosplenomegaly present Extremity: COMMON NORMALS: normal to inspection, capillary refill normal, no clubbing, cyanosis or edema, no calf tenderness and no pedal edema Neuro: SENSORIUM/ORIENTATION: Yes oriented to person, Yes oriented to place and Yes oriented to time Skin: COMMON NORMALS: no rashes or lesions noted GENERAL SKIN EXAM: no rashes or lesions noted Course Vital Signs: Vital signs: Vital Signs Temperature 98.2 F 02/08/25 13:04 Pulse Rate 84 02/08/25 13:04 Respiratory Rate 18 02/08/25 13:04 Blood Pressure 187/94 02/08/25 13:04 Pulse Oximetry 99 02/08/25 13:04 Oxygen Delivery Me thod Room Air 02/08/25 13:04 MDM - Abdominal Pain Medical Decision Making 2 mm right UVJ stone no signs of infection. Pain well-controlled. Reviewed CT findings with patient discharge home strain urine pain control with hydrocodone promethazine give tamsulosin as well will have case management make arrangements for her to follow-up with urology Lab Data 02/08/25 13:15 02/08/25 13:15 Labs/Radiology: Radiology Impressions Abdomen/Pelvis CT 02/08/25 13:34 IMPRESSION: 2 mm right UVJ stone with mild hydronephrosis Laboratory Results WBC 8.32 10^3/uL (3.29-11.43) 02/08/25 13:15 RBC 4.52 10^6/uL (3.85-5.65) 02/08/25 13:15 Hgb 12.70 g/dL (11.27-16.99) 02/08/25 13:15 Hct 39.7 % (36-47) 02/08/25 13:15 MCV 87.8 fl (85-98) 02/08/25 13:15 MCH 28.1 pg (27-33) 02/08/25 13:15 MCHC 32.0 g/dL (30-55) 02/08/25 13:15 RDW 13.1 % (12.1-15.1) 02/08/25 13:15 Plt Count 328 10^3/cmm (157-399) 02/08/25 13:15 MPV 8.7 fL (7.4-10.4) 02/08/25 13:15 Neut % (Auto) 67.0 % 02/08/25 13:15 Lymph % (Auto) 25.4 % 02/08/25 13:15 [place] % (Auto) 5.2 % 02/08/25 13:15 Eos % (Auto) 1.2 % 02/08/25 13:15 Baso % (Auto) 0.7 % 02/08/25 13:15 Neut # (Auto) 5.58 10^3/uL (1.8-7.7) 02/08/25 13:15 Lymph # (Auto) 2.1 10^3/uL (0.8-4.8) 02/08/25 13:15 [place] # (Auto) 0.4 10^3/uL (0.2-0.9) 02/08/25 13:15 Eos # (Auto) 0.1 10^3/uL (0.0-0.8) 02/08/25 13:15 Baso # (Auto) 0.1 10^3/uL (0.0-0.1) 02/08/25 13:15 Nucleated RBC % (auto) 0 % 02/08/25 13:15 Nucleated RBCs # 0.0 /100WBC 02/08/25 13:15 Sodium 137 mmol/L (136-145) 02/08/25 13:15 Potassium 4.2 mmol/L (3.5-5.1) 02/08/25 13:15 Chloride 104 mmol/L (98-107) 02/08/25 13:15 Carbon Dioxide 19 mmol/L (22-29) L 02/08/25 13:15 Anion Gap 18.2 (5-19) 02/08/25 13:15 BUN 13 mg/dL (8-23) 02/08/25 13:15 Creatinine 0.7 mg/dL (0.5-0.9) 02/08/25 13:15 GFR Calculation Not Reportable 02/08/25 13:15 Glucose 148 mg/dL (65-115) H 02/08/25 13:15 Calculated Osmolality 287 mOsm/kg (285-295) 02/08/25 13:15 Calcium 9.2 mg/dL (8.5-10.5) 02/08/25 13:15 Total Bilirubin 0.5 mg/dL (0.15-1.2) 02/08/25 13:15 AST 29 U/L (0-32) 02/08/25 13:15 ALT 28 U/L (0-33) 02/08/25 13:15 Alkaline Phosphatase 78 U/L (35-105) 02/08/25 13:15 Total Protein 6.7 g/dL (6.6-8.7) 02/08/25 13:15 Albumin 3.9 g/dL (3.5-5.2) 02/08/25 13:15 Globulin 2.8 g/dL (1.3-4.6) 02/08/25 13:15 Lipase 32 U/L (13-60) 02/08/25 13:15 Urine Color Dark yellow (Yellow) A 02/08/25 13:37 Urine Appearance Clear (CLEAR) 02/08/25 13:37 Urine pH 6.5 (5-7) 02/08/25 13:37 Ur Specific Dick[place] 1.021 (1.005-1.030) 02/08/25 13:37 Urine Protein Negative (Negative) 02/08/25 13:37 Urine Glucose (UA) Negative (Normal) 02/08/25 13:37 Urine Ketones Trace (Negative) 02/08/25 13:37 Urine Blood Negative (Negative) 02/08/25 13:37 Urine Nitrate Negative (Negative) 02/08/25 13:37 Urine Bilirubin Negative (Negative) 02/08/25 13:37 Urine Urobilinogen 1.0 mg/dL (Negative) 02/08/25 13:37 Ur Leukocyte Esterase Negative (Negative) 02/08/25 13:37 Urine RBC 3-5 /hpf (0-2) 02/08/25 13:37 Urine WBC 0-5 /hpf (0-5) 02/08/25 13:37 Ur Squamous Epith Cells 0-5 /hpf (0-5) 02/08/25 13:37 Amorphous Sediment Not Reportable 02/08/25 13:37 Urine Bacteria None seen /hpf (NONE) 02/08/25 13:37 Hyaline Casts 0.40 /lpf 02/08/25 13:37 All radiology interpretation(s) finalized by discharge Discharge Plan Discharge Patient Disposition: Home Clinical Impression: Calculus of kidney Condition: Stable Prescriptions: New hydrocodone-acetaminophen 5-325 mg tablet 1 tab PO Q6H PRN (Reason: pain) Qty: 20 0RF promethazine 25 mg tablet 25 mg PO Q6H PRN (Reason: nausea and vomiting) Qty: 20 0RF tamsulosin 0.4 mg capsule 0.4 mg PO DAILY Qty: 20 0RF No Action magnesium oxide 400 mg magnesium capsule 400 mg PO DAILY selenium 200 mcg capsule 200 mcg PO DAILY venlafaxine [Effexor XR] 75 mg capsule,extended release 24hr 150 mg PO DAILY vitamin E mixed 400 unit capsule 400 unit PO DAILY cinnamon bark 500 mg capsule 1,500 mg PO DAILY metoprolol tartrate 25 mg tablet 25 mg PO BID Qty: 180 2RF milk thistle 500 mg Capsule 500 mg PO DAILY glucosamine sulfate [Glucosamine] 500 mg Tablet 500 mg PO DAILY metformin 1,000 mg Tablet 1,000 mg PO BID vitamin B complex Tablet 1 tab PO DAILY omega 1-rla-iww-fish oil [Fish Oil] 1,000 mg (120 mg-180 mg) Capsule 1 cap PO DAILY coconut oil 1,000 mg Capsule 1,000 mg PO DAILY turmeric 400 mg Capsule 400 mg PO DAILY losartan 25 mg tablet 25 mg PO DAILY Vitamin D3 25 mcg (1,000 unit) capsule 100 mcg PO DAILY Ocuvite Adult 50 Plus 250 mg (90 mg-160 mg) Capsule 1 cap PO DAILY ashwagandha extract 120 mg Capsule 120 mg PO DAILY Discharge Orders: Discharge ED (Routine); Ordered 02/08/25 Ordered By: Wilson Butler Referrals: Douglas,Lidya Mayra, DO [Primary Care Provider] - Discharge Diet: Usual diet Discharge Activity: Resume usual activity Patient Instructions: Kidney Stones (ED), How to Strain Your Urine (ED), Opioid Safety, Pain Management Activity Restrictions/Additional Instructions: Thank you for choosing [facility] for your healthcare needs today. It is very important that you follow up as instructed or that you return to the Emergency Department should you have concerns or if your condition changes or worsens in any way. You were seen in the emergency room with complaints of right flank pain. Scan shows that you have a 2 mm UVJ stone. Recommend that you strain your urine to collect the stone. You were given pain and nausea medicines to use as needed you are also given tamsulosin which helps the stone pass sooner. Print Language: Canadian Coding Level of Care Code ED [employer] for Yris Fowler
[2025-02-08 13:04] VITALS: BP 187/94; PULSE 84; RESP 18; TEMP 36.8; O2SAT 99; BMI 37.5
[2025-02-08 13:25] LABS: Basophils # 0.1 10^3/uL (0.0-0.1); Basophils % 0.7 %; Eosinophils # 0.1 10^3/uL (0.0-0.8); Eosinophils % 1.2 %; Hematocrit 39.7 % (36-47); Lymphocytes # 2.1 10^3/uL (0.8-4.8); Lymphocytes % 25.4 %; Mean Corpuscular Hemoglobin 28.1 pg (27-33); Mean Corpuscular Volume 87.8 fl (85-98); Mean Platelet Volume 8.7 fL (7.4-10.4); Monocytes # 0.4 10^3/uL (0.2-0.9); Monocytes % 5.2 %; Neutrophils # 5.58 10^3/uL (1.8-7.7); Nucleated Red Blood Cells % 0 %; Platelet Count 328 10^3/cmm (157-399); Red Blood Count 4.52 10^6/uL (3.85-5.65); Red Cell Distribution Width 13.1 % (12.1-15.1); White Blood Count 8.32 10^3/uL (3.29-11.43)
--- NOTE | 2025-02-08 13:34 | CTR_ITS ---
PROCEDURE INFORMATION: Exam: CT Abdomen And Pelvis With Contrast Exam date and time: 02/08/2025 1:53 PM Age: 74 years old Clinical indication: Abdominal pain; Localized; Right lower quadrant (rlq); Prior surgery; Surgery date: 6+ months; Surgery type: Gb appy hysto; Additional info: Abd pain TECHNIQUE: Imaging protocol: Computed tomography of the abdomen and pelvis with contrast. Radiation optimization: All CT scans at this facility use at least one of these dose optimization techniques: automated exposure control; mA and/or kV adjustment per patient size (includes targeted exams where dose is matched to clinical indication); or iterative reconstruction. Contrast material: OMNIPAQUE 350; Contrast volume: 100 ml; Contrast route: INTRAVENOUS (IV); COMPARISON: CR XR chest 1V portable [id number] 10/06/2022 7:05 PM RADIATION DOSE METRICS: Total DLP (mGy-cm): 1060.79 FINDINGS: Lungs: Lung bases are clear. No pleural effusion. Liver: Normal. No mass. Gallbladder and biliary ducts: The gallbladder has been resected. Pancreas: Normal. No ductal dilation. Spleen: Normal. No splenomegaly. Adrenal glands: Normal. No mass. Kidneys and ureters: There is a 2 mm stone lying in the ureterovesical portion of the right ureter. Mild hydronephrosis is noted. Stomach and bowel: Unremarkable. No obstruction. No mucosal thickening. Appendix: No evidence of appendicitis. Intraperitoneal space: Unremarkable. No free air. No significant fluid collection. Vasculature: Unremarkable. No abdominal aortic aneurysm. Lymph nodes: Unremarkable. No enlarged lymph nodes. Urinary bladder: Unremarkable as visualized. Reproductive: Unremarkable as visualized. Bones/joints: Unremarkable. No acute fracture. Soft tissues: Unremarkable. CT/CT abdomen pelvis w con* [id number] IMPRESSION: 2 mm right UVJ stone with mild hydronephrosis
[2025-02-08 13:39] LABS: Alanine Aminotransferase 28 U/L (0-33); Albumin Level 3.9 g/dL (3.5-5.2); Alkaline Phosphatase 78 U/L (35-105); Anion Gap 18.2 (5-19); Aspartate Amino Transferase 29 U/L (0-32); Blood Urea Nitrogen 13 mg/dL (8-23); Calcium 9.2 mg/dL (8.5-10.5); Carbon Dioxide 19 mmol/L (22-29); Chloride 104 mmol/L (98-107); Creatinine Clr Calc Pharmacy 78.4083; Globulin 2.8 g/dL (1.3-4.6); Glucose 148 mg/dL (65-115); Lipase 32 U/L (13-60); Osmolality Calculated 287 mOsm/kg (285-295); Potassium 4.2 mmol/L (3.5-5.1); Sodium 137 mmol/L (136-145); Total Bilirubin 0.5 mg/dL (0.15-1.2); Total Protein 6.7 g/dL (6.6-8.7)
[2025-02-08 13:49] LABS: Bilirubin Urine Negative (Negative); Blood Urine Negative (Negative); Glucose Urine UA Negative (Normal); Ketones Urine Trace (Negative); Leukocyte Esterase Urine Negative (Negative); Nitrate Urine Negative (Negative); Protein Urine Negative (Negative); Specific Gravity, Urine 1.021 (1.005-1.030); Urine Appearance Clear (CLEAR); Urine Color Dark Yellow (Yellow); pH Urine 6.5 (5-7)
[2025-02-08 13:54] LABS: Add Urine Microscopic? YES; Bacteria Urine None Seen /hpf; Squamous Epithelial Cell Urine 0-5 /hpf (0-5); WBC Urine 0-5 /hpf (0-5)
[2025-02-08] MEDS: iohexol 350 mg/mL 500 mL Btl (per mL) IV (14:04)
[2025-02-08] MEDS: prochlorperazine 10 mg/2 mL Inj IVP (14:17)
[2025-02-08] MEDS: ketorolac 30 mg/mL INJ 15 MG IVP (14:19)
[2025-02-08 14:37] VITALS: BP 178/87; PULSE 88; O2SAT 97
[2025-02-08 14:52] VITALS: BP 168/102; PULSE 89; O2SAT 96
--- NOTE | 2025-02-10 07:49 | DCPLANNER ---
faxed packet to [facility]
== END 2025-02-08 14:52 | disposition home or self-care (01) ==
PROVIDERS: Emergency Provider Family Medicine; PCP Family Medicine
DX: N20.0 Calculus of kidney (principal); I10 Essential (primary) hypertension
CPT/HCPCS: 36415; 74177; 80053; 81001; 83690; 85025; 96374; 96375; 99285; J0780; J1885